=== PATIENT | female | born 1945 | race Caucasian/White ===

== ENCOUNTER 2017-05-21 14:54 | Emergency (ER) | payer MEDICARE, BC ==
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
[2017-05-21] MEDS ORDERED: HYDROmorphone 0.5 MG/0.5 ML Syringe IVPUSH ONE (17:11)
[2017-05-21 18:02] VITALS: BP 132/83
--- NOTE | 2017-05-23 09:05 | CR ---
Knee 3V Rt HISTORY: Pain fall COMPARISON: None FINDINGS: Right knee arthroplasty change. No effusion or fracture. No bony destructive process.
== END 2017-05-21 18:54 | disposition home or self-care (01) ==
LOC: JP.ED 14:54
DX: S80.01XA Contusion of right knee, initial encounter (principal); I10 Essential (primary) hypertension; E78.00 Pure hypercholesterolemia, unspecified; E03.9 Hypothyroidism, unspecified; Z96.659 Presence of unspecified artificial knee joint; Z86.718 Personal history of other venous thrombosis and embolism; Z79.899 Other long term (current) drug therapy; W10.2XXA Fall (on)(from) incline, initial encounter
CPT/HCPCS: 70450; 73562; 96374; 99284; J1170; 99283